=== PATIENT | female | born 2000 | race Caucasian/White ===

== ENCOUNTER 2023-02-14 11:38 | Inpatient (IN) ==
--- NOTE | 2023-02-14 12:51 | History & Physical Report ---
Date of Service February 14, 2023 Assessment & Plan (1) : Plan: Admit to L&D for further monitoring and management VSS FHT category 1 Epidural prn History of Present Illness Chief Complaint: Labor check Primary Care Provider: Nedra Worthington PA-C Lorin is a 22y/o female currently at IUP 40 3/7 WGA with an MEGHAN 02/11/2023 as determined by certain LMP and US who is here due to contractions that began yesterday night, which have become stronger and more regular since their onset. Arrived initially with 3 cm cervical dilation, and after a while progressed to 4 cm with increased effacement. There are no complications associated to her current . (+) contractions (+) movement (-) fluid loss (-) vaginal bleeding External FHT and external uterine monitors used * Category 1 tracing * Contractions q5min Had regular appointments since first trimester. Labs: (07/07/2022) * Blood type: AB positive * Antibody screen: negative * Rubella: immune * VDRL/RPR: non-reactive * Gonorrhea: not detected * Chlamydia: not detected * HIV: non-reactive x2 * HbSAg: non-reactive * GBS: negative * Failed 1-hour GTT but passed the 2-hour GTT * Other screens: * cff-DNA: low risk * CF: negative * SMA: negative Allergies Allergy/AdvReac Type Severity Reaction Status Date / Time No Known Allergies Allergy Verified 02/14/23 10:38 Home Medications Medication Instructions Recorded Confirmed Type prenat.vits,andres,ywb-bykp-egbld 1 tab PO DAILY 06/29/22 02/14/23 History Patient History Medical History Anxiety Depression Surgical History No history of previous surgery Social History (Updated 06/29/22 @ 09:13 by aMssiel Walls) Smoking Status: Never smoker Do You Dip or Chew Tobacco: No; Hx Alcohol Use: No Hx Substance Use: No Preferred Language: Hebrew Communication Ability: Effective 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 current occupational status: employed current occupation: Cosmotologist Other Information That Helps Us Care for You: No Feels Safe at Home: Yes Safety Concerns: Feels Safe At This Time Assistive Devices: None OB History 1 prior Spontaneous at 5 weeks gestation (04/11/2022) SENIOR QUALITY ANALYST History Menarche was at 14 y/o LMP: 05/07/2022 * Regular: Every 27-28 days * Duration: 5 days * Flow: normal * Dysmenorrhea: yes * IMB: no Contraception use: No History of STDs: Yes * Chlamydia (treated on 2021) No history of pap smear Review of Systems no fever, no chills and no sweats Denies changes in vision. Denies shortness of breath or respiratory difficulty. no chest pain and no palpitations no dysuria no headache(s) Physical Exam Physical Exam: General: Alert, oriented x3. Afebrile. No acute distress. Eyes: Pupils equal and reactive to light bilaterally. Extraocular movement intact bilaterally. Cardiac: Regular rate and rhythm, no murmurs/rubs/gallops. Respiratory: Clear to auscultation bilaterally a/p, no wheezes/rales/rhonchi. No increased work of breathing. Symmetrical chest rise. No respiratory distress. Abdomen: Gravid; FHR at 130-135; Position: Cephalic Pelvic: Dilation 3cm; Effacement 80; Station -[address] Stern Lower Extremities: No lower extremity edema or swelling. No deep calf pain. Karen's negative bilaterally Results & Data Vital Signs (Past 12 Hours) Vital Signs Temp Pulse Resp BP Pulse Ox 02/14/23 12:29 94 02/14/23 12:29 109 H 02/14/23 12:24 96 02/14/23 12:24 122 H 02/14/23 12:19 96 02/14/23 12:19 118 H 02/14/23 12:15 94 02/14/23 12:15 122 H 02/14/23 12:14 95 02/14/23 12:14 113 H 02/14/23 12:09 94 02/14/23 12:09 132 H 02/14/23 12:08 137 H 02/14/23 12:08 116/70 08/01/23 11:49 37.0 C 131 H 20 119/74 Diagnostic Findings Anterior placenta EFW 39% Supervising Physician Co-Signing Physician Notes Resident Physician Supervision Note: I interviewed and examined the patient. Discussed with Dr. Delgado and agree with findings and plan as documented in the note. Any exceptions or clarifications ar e listed here: 22 yo at 40 3/7 wga presents w/ ctx increasing in frequency and intensity. Was 3cm in office, progressed to 3-4 and progression in effacement. PNI: None. VSS, Fetus cat 1. GBS neg, desires epidural Documented By: Gemma Stern MD Resident Activity Tracking Resident Involvement: Resident Care Provided Care Provided: OB Delivery
[2023-02-14] MEDS ORDERED: LIDOCAINE 1% LOCAL 20 ML VIAL INFIL PRN (14:23)
[2023-02-14] MEDS ORDERED: OXYTOCIN 30 UNITS/500 ML BAG IV PRN (14:23)
[2023-02-14] MEDS: LACTATED RINGER'S 1,000 ML IV PRN ×3 (14:32→20:12)
[2023-02-14] MEDS ORDERED: fentaNYL citrate PF 100 MCG/2 ML VIAL ONE (14:39)
[2023-02-14] MEDS ORDERED: LIDOCAINE 2%/EPINEPHRINE 1:200,000 20 ML PF ONE (14:40)
[2023-02-14] MEDS ORDERED: fentaNYL 2MCG/ML ROPIVACAINE 1.25MG/ML 100 ML BAG EPI ONE (14:40)
[2023-02-14] MEDS ORDERED: BUPIVACAINE 0.25% PF 30 ML VIAL ONE (14:40)
[2023-02-14] MEDS ORDERED: ePHEDrine sulfate 50 MG/ML AMP ONE (14:40)
[2023-02-14] MEDS ORDERED: SODIUM CHLORIDE 0.9% PF INJ 10 ML VIAL ONE (14:40)
[2023-02-14 15:18] LABS: Hematocrit (blood only) 31.5 % (37.0-47.0); Hemoglobin 10.6 g/dl (12.0-16.0); Mean Corpuscular Hemoglobin 28.9 pg (25.0-34.0); Mean Corpuscular Hgb Conc 33.7 g/dL (32.0-36.0); Mean Corpuscular Volume 85.8 fL (80.0-100.0); Mean Platelet Volume 10.4 fL (9.4-12.4); Platelet Count 233 K/uL (130-400); RDW Coefficient of Variation 13.4 % (11.5-14.5); Red Blood Count 3.67 M/uL (4.20-5.40); White Blood Count 13.88 K/ul (4.8-10.8)
[2023-02-14] MEDS ORDERED: fentaNYL 2MCG/ML ROPIVACAINE 1.25MG/ML 100 ML BAG EPI PRN (15:51)
[2023-02-14] MEDS ORDERED: diphenhydrAMINE 50 MG/ML VIAL IV PRN (15:51)
[2023-02-14] MEDS ORDERED: SODIUM CHLORIDE 0.9% PF INJ 10 ML VIAL EPI PRN (15:51)
[2023-02-14] MEDS ORDERED: NALOXONE HCL 0.4 MG/1 ML VIAL/CARP IV PRN (15:51)
[2023-02-14] MEDS ORDERED: SODIUM CHLORIDE 0.9% PF INJ 10 ML VIAL EPI STA (15:51)
[2023-02-14] MEDS ORDERED: NALBUPHINE HCL INJ 10 MG/ML AMP IV PRN (15:51)
[2023-02-14] MEDS ORDERED: BUPIVACAINE 0.25% PF 30 ML VIAL EPI PRN (15:51)
[2023-02-14] MEDS ORDERED: LIDOCAINE 2%/EPINEPHRINE 1:200,000 20 ML PF EPI STA (15:51)
[2023-02-14] MEDS ORDERED: ROPIVACAINE 0.5% PF 5 MG/ML 20 ML VIAL EPI PRN (15:51)
[2023-02-14] MEDS ORDERED: fentaNYL citrate PF 100 MCG/2 ML VIAL EPI STA (15:51)
[2023-02-14] MEDS ORDERED: ePHEDrine sulfate 50 MG/ML AMP IV PRN (15:51)
[2023-02-14] MEDS ORDERED: NALOXONE HCL 1 MG in SODIUM CHLORIDE 0.9% 1000ML 1,000 ML IV PRN (15:51)
[2023-02-14] MEDS ORDERED: BUPIVACAINE 0.25% PF 30 ML VIAL EPI STA (15:51)
[2023-02-14] MEDS ORDERED: fentaNYL citrate PF 100 MCG/2 ML VIAL EPI PRN (15:51)
[2023-02-14] MEDS ORDERED: LIDOCAINE 2% MPF LOCAL 5 ML VIAL EPI PRN (15:51)
--- NOTE | 2023-02-14 15:52 | Anesthesiology Consultation ---
Date of Service February 14, 2023 Assessment & Plan (1) Encounter for pre-operative examination: Chart Review Chart Review: Patient NOT seen in Pre Admission Testing and Acceptable Risk for Labor Epidural Consults Requested none History Height/Weight Height: 5 ft 3 in Weight: 76.204 kg Allergies Allergy/AdvReac Type Severity Reaction Status Date / Time No Known Allergies Allergy Verified 02/14/23 10:38 Medications Home Medications Medication Instructions Recorded Confirmed Last Taken prenat.vits,andres,gsy-flnt-igarj 1 tab PO DAILY 06/29/22 02/14/23 02/13/23 09:00 Active Medications Generic Name Dose Route Start Last Admin Trade Name Freq PRN Reason Stop Dose Admin Lactated Ringer's 1,000 mls @ 125 mls/hr 02/14/23 14:23 02/14/23 15:59 Lr IV 02/16/23 14: 125 mls/hr .Q8H PRN Infusion L&D Protocol Protocol Past Medical History Medical History (Updated 02/14/23 @ 15:52 by Martin Taveras MD) Anxiety Depression Encounter for pre-operative examination Past Surgical History Surgical History No history of previous surgery Social History Smoking Status: Never smoker Do You Dip or Chew Tobacco: No Hx Alcohol Use: No Hx Substance Use: No Physical Exam Vital Signs Last Vital Signs Temp 36.6 C 02/14/23 14:35 Pulse 105 H 02/14/23 16:12 Resp 20 02/14/23 14:35 BP 119/72 02/14/23 16:12 Pulse Ox 95 02/14/23 16:11 Testing Laboratory Results 02/14/23 14:48
--- NOTE | 2023-02-14 19:24 | Labor Progress Brief Note ---
Date of Service February 14, 2023 Subjective comfortable w/ epidural Assessment & Plan (1) : Plan: 22 yo at 40 3/7 wga presents in labor VSS Fetus cat 1 Labor - good progress from prior, now s/p arom. Pit prn GBS neg epidural prn Admission and Anticipated Discharge Date Admission Date: February 14, 2023 Physical Exam Genitourinary: Manual OB Exam: + cervical dilation (4-5), + cervical effacement 80%, + station -2 and + amniotic fluid (arom clear) OB Exam Monitor Tracing: + external FHT monitor used, + external uterine monitor used (q3-4) and + category I (130/mod/+accel/-decel) Results & Data Vital Signs (Past 12 Hours) Vital Signs Temp Pulse Resp BP Pulse Ox 02/14/23 19:16 93 02/14/23 19:16 85 02/14/23 19:14 89 02/14/23 19:14 106/57 L 02/14/23 19:11 95 02/14/23 19:11 90 02/14/23 19:06 94 02/14/23 19:06 93 H 02/14/23 19:00 18 02/14/23 19:00 98.6 F 18 02/14/23 19:01 94 02/14/23 19:01 94 H 02/14/23 19:00 20 02/14/23 19:00 20 02/14/23 18:59 92 H 02/14/23 18:59 107/62 02/14/23 18:56 95 02/14/23 18:56 95 H 02/14/23 18:51 94 02/14/23 18:51 95 H 02/14/23 18:46 95 02/14/23 18:46 95 H 02/14/23 18:44 98 H 02/14/23 18:44 105/62 02/14/23 18:41 96 02/14/23 18:41 95 H 02/14/23 18:36 95 02/14/23 18:36 90 02/14/23 18:37 88 02/14/23 18:37 105/58 L 02/14/23 18:31 92 02/14/23 18:31 88 02/14/23 18:30 18 02/14/23 18:30 18 02/14/23 18:26 94 02/14/23 18:26 88 02/14/23 18:21 93 02/14/23 18:21 90 02/14/23 18:16 95 02/14/23 18:16 85 02/14/23 18:11 93 02/14/23 18:11 90 02/14/23 18:06 92 02/14/23 18:06 96 H 02/14/23 18:00 18 02/14/23 18:00 18 02/14/23 18:01 96 02/14/23 18:01 97 H 02/14/23 18:01 87 02/14/23 18:01 116/68 02/14/23 17:56 93 02/14/23 17:56 102 H 02/14/23 17:51 93 02/14/23 17:51 99 H 02/14/23 17:46 91 02/14/23 17:46 106 H 02/14/23 17:44 92 H 02/14/23 17:44 106/55 L 02/14/23 17:41 91 02/14/23 17:41 93 H 02/14/23 17:36 91 02/14/23 17:36 94 H 02/14/23 17:31 91 02/14/23 17:31 97 H 02/14/23 17:31 101 H 02/14/23 17:31 111/61 02/14/23 17:30 20 02/14/23 17:30 20 02/14/23 17:26 94 02/14/23 17:26 97 H 02/14/23 17:21 93 02/14/23 17:21 107 H 02/14/23 17:16 93 02/14/23 17:16 96 H 02/14/23 17:15 94 H 02/14/23 17:15 116/58 L 02/14/23 17:11 94 02/14/23 17:11 98 H 02/14/23 17:06 94 02/14/23 17:06 95 H 02/14/23 17:01 94 02/14/23 17:01 92 H 02/14/23 17:00 20 02/14/23 17:00 20 02/14/23 17:00 90 02/14/23 17:00 107/58 L 02/14/23 16:56 93 02/14/23 16:56 92 H 02/14/23 16:51 94 02/14/23 16:51 90 02/14/23 16:46 95 02/14/23 16:46 102 H 02/14/23 16:46 102 H 02/14/23 16:46 112/68 02/14/23 16:41 95 02/14/23 16:41 94 H 02/14/23 16:36 93 02/14/23 16:36 100 H 02/14/23 16:31 94 02/14/23 16:31 102 H 02/14/23 16:30 18 02/14/23 16:30 18 02/14/23 16:28 107 H 02/14/23 16:28 114/75 02/14/23 16:26 92 02/14/23 16:26 106 H 02/14/23 16:27 109 H 02/14/23 16:27 116/76 02/14/23 16:24 100 H 02/14/23 16:24 116/76 02/14/23 16:23 108 H 02/14/23 16:23 116/76 02/14/23 16:21 94 02/14/23 16:21 111 H 02/14/23 16:20 90 02/14/23 16:20 111/63 02/14/23 16:18 108 H 02/14/23 16:18 117/72 02/14/23 16:16 20 02/14/23 16:16 98.6 F 20 02/14/23 16:16 94 02/14/23 16:16 119 H 02/14/23 16:17 118 H 02/14/23 16:17 115/71 02/14/23 16:11 20 02/14/23 16:11 20 02/14/23 16:14 114 H 02/14/23 16:14 119/73 02/14/23 16:12 105 H 02/14/23 16:12 119/72 02/14/23 16:11 95 02/14/23 16:11 104 H 02/14/23 16:11 106 H 02/14/23 16:11 113/70 02/14/23 16:08 100 H 02/14/23 16:08 131/72 02/14/23 16:06 96 02/14/23 16:06 92 H 02/14/23 16:07 95 H 02/14/23 16:07 125/74 02/14/23 16:05 94 02/14/23 16:05 102 H 02/14/23 16:01 96 02/14/23 16:01 108 H 02/14/23 15:56 97 02/14/23 15:56 108 H 02/14/23 15:51 91 02/14/23 15:51 103 H 02/14/23 15:46 97 02/14/23 15:46 101 H 02/14/23 15:41 96 02/14/23 15:41 103 H 02/14/23 15:36 98 02/14/23 15:36 102 H 02/14/23 15:36 114/74 02/14/23 15:34 87 L 02/14/23 15:34 101 H 02/14/23 15:31 97 02/14/23 15:31 97 H 02/14/23 15:26 95 02/14/23 15:26 106 H 02/14/23 15:24 92 02/14/23 15:24 93 H 02/14/23 15:21 97 02/14/23 15:21 86 02/14/23 15:16 97 02/14/23 15:16 114 H 02/14/23 15:11 95 02/14/23 15:11 108 H 02/14/23 15:06 96 02/14/23 15:06 98 H 02/14/23 15:02 94 02/14/23 15:02 100 H 02/14/23 15:01 95 02/14/23 15:01 94 H 02/14/23 14:35 20 02/14/23 14:35 97.9 F 20 02/14/23 14:57 94 02/14/23 14:57 90 02/14/23 14:56 95 02/14/23 14:56 101 H 02/14/23 14:51 95 02/14/23 14:51 116 H 02/14/23 14:51 93 02/14/23 14:51 114 H 02/14/23 14:46 93 02/14/23 14:46 106 H 02/14/23 14:46 92 02/14/23 14:46 108 H 02/14/23 14:41 94 02/14/23 14:41 117 H 02/14/23 14:37 91 02/14/23 14:37 127 H 02/14/23 14:36 96 02/14/23 14:36 105 H 02/14/23 14:35 97 H 02/14/23 14:35 129/72 02/14/23 13:24 95 02/14/23 13:24 100 H 02/14/23 13:19 96 02/14/23 13:19 122 H 02/14/23 13:14 96 02/14/23 13:14 100 H 02/14/23 13:09 94 02/14/23 13:09 125 H 02/14/23 13:04 95 02/14/23 13:04 104 H 02/14/23 12:59 94 02/14/23 12:59 110 H 02/14/23 12:54 94 02/14/23 12:54 114 H 02/14/23 12:49 95 02/14/23 12:49 111 H 02/14/23 12:44 96 02/14/23 12:44 134 H 02/14/23 12:39 95 02/14/23 12:39 124 H 02/14/23 12:34 95 02/14/23 12:34 119 H 02/14/23 12:29 94 02/14/23 12:29 109 H 02/14/23 12:24 96 02/14/23 12:24 122 H 02/14/23 12:19 96 02/14/23 12:19 118 H 02/14/23 12:15 94 02/14/23 12:15 122 H 02/14/23 12:14 95 02/14/23 12:14 113 H 02/14/23 12:09 94 02/14/23 12:09 132 H 02/14/23 12:08 137 H 02/14/23 12:08 116/70 02/14/23 11:49 98.6 F 131 H 20 119/74 Coding Level of Care Code None Diagnoses Z34.90
[2023-02-15] MEDS ORDERED: OXYTOCIN 30 UNITS/500 ML BAG IV PRN ×2 (00:13→05:27)
[2023-02-15] MEDS ORDERED: NURSING L&D Epidural Breakthrough Pain Update ONE (00:21)
[2023-02-15] MEDS: LACTATED RINGER'S 1,000 ML IV PRN (03:05)
--- NOTE | 2023-02-15 05:26 | Delivery Summary ---
Vaginal Delivery Summary Date of Service February 15, 2023 Vaginal Delivery Summary and 2nd Degree LAC PREOPERATIVE DIAGNOSIS: 1. Single intrauterine at 40 4/7 wga 2. Labor POSTOPERATIVE DIAGNOSIS: 1. Single intrauterine at 40 4/7 wga 2. Labor 3. Delivered PROCEDURE: 1. Normal spontaneous vaginal delivery. SURGEON: Gemma Stern MD ANESTHESIA: Epidural. ESTIMATED BLOOD LOSS: 300 mL FLUIDS: Continuous LR. URINE OUTPUT: None. COMPLICATIONS: None. CONDITION: Stable. INDICATIONS: 22 yo at 40 4/7 wga presented one day ago with contractions increasing in frequency and intensity to the office and found to be 3cm and in labor. She continued to progress spontaneously and received an epidural for pain control. She underwent AROM and continued to progress but contractions did slow down around 8cm so pitocin was started. She continued to progress to complete and desired to push. FINDINGS: A viable female infant, weight pending with Apgars of 8 and 9 at 1 and 5 minutes respectively. SPECIMEN: Cord blood OPERATIVE REPORT: The patient progressed to 10 cm, 100% effaced and +2 station, pushed over intact perineum with anesthesia to deliver a viable female , weight and Apgars as above. Head of delivered in TOMASZ position. Loose nuchal cord was present. Body and shoulders were delivered without difficulty. was delivered to maternal abdomen and nursing staff. Delayed cord clamping was performed for 60 seconds. Cord was clamped and cut. Cord blood was obtained. Placenta delivered spontaneously intact with 3-vessel cord. IV oxytocin and fundal massage were given for excellent hemostasis. Vagina, cervix, perineum, and placenta were inspected. A second degree laceration was repaired using 3-0 vicryl in the usual fashion. Sponge and needle counts correct x2. No sponges were left behind. Mother and stable in immediate period. [facility] [place] [facility] [place]aginal Delivery Charge Vaginal Delivery Codes: 69035 global code for the antepartum, delivery, and post- Delivery Type Details: and 2nd Degree LAC
[2023-02-15] MEDS ORDERED: BENZOCAINE 20% SPRY 85 APPLN/85 GM CAN EXT PRN (05:27)
[2023-02-15] MEDS ORDERED: bisacodyL 10 MG SUPP PR PRN (05:27)
[2023-02-15] MEDS ORDERED: ACETAMINOPHEN 325 MG TAB PO PRN (05:27)
[2023-02-15] MEDS ORDERED: DIPHTHERIA/TETANUS/PERTUSSIS Vaccine (Tdap, Age 7+yrs) 0.5mL SYR/VL IM ONE (05:27)
[2023-02-15] MEDS ORDERED: HYDROCORTISONE ACETATE 25 MG SUPP PR PRN (05:27)
[2023-02-15] MEDS: IBUPROFEN 600 MG TAB PO PRN ×3 (06:00→18:47)
--- NOTE | 2023-02-15 07:34 | Anesthesia Procedure Note ---
Date of Service February 15, 2023 Anesthesia Post Epidural Note Vital Signs Vital Signs: Temp Pulse Resp BP Pulse Ox 36.9 C 95 H 18 111/61 92 02/15/23 05:15 02/15/23 07:13 02/15/23 06:45 02/15/23 07:13 02/15/23 05:06 Pain Intensity Bilateral Abdomen: Pain Intensity: 4 Bilateral Episiotomy/Laceration: Pain Intensity: 2 Notes Mental Status: alert / awake / arousable and participated in evaluation Nausea / Vomiting: adequately controlled Pain: adequately controlled Airway Patency, RR, SpO2: stable & adequate BP & HR: stable & adequate Hydration State: stable & adequate Neuraxial Anesthesia: was administered and sensory block is resolving Anesthetic Complications: no major complications apparent and Pt Satisfied with anesthetic care Epidural: Removed without complications and With tip intact
[2023-02-15] MEDS: FERROUS SULFATE 325 MG TAB PO SCH (08:16)
[2023-02-15] MEDS: DOCUSATE SODIUM 100 MG CAP PO SCH ×2 (08:16→20:05)
[2023-02-15] MEDS: PRENATAL VITAMIN 1 TAB PO SCH (08:16)
--- NOTE | 2023-02-16 06:35 | Obstetrical Progress Note ---
Date of Service <Shanta Delgado MD - Last Filed: 02/16/23 07:39> February 16, 2023 Assessment & Plan <Shanta Delgado MD - Last Filed: 02/16/23 07:39> (1) Spontaneous vaginal delivery: Patient with the above mentioned history and findings was evaluated at bedside and found clinically and hemodynamically stable, afebrile, awake, alert, oriented x3, and in no acute distress. Overall she seems stable and is fit to go home today. Discharge instructions were discussed. Her pain will be managed with Tylenol, Advil, Ibuprofen, or Motrin PRN. She is to call to schedule and appointment with her OB for 6 weeks after discharge for her follow up evaluation. All questions were answered. <Keyana Crowe MD, FACOG - Last Filed: 02/16/23 07:41> (1) Spontaneous vaginal delivery: Subjective <Shanta Delgado MD - Last Filed: 02/16/23 07:39> Lorin is a 22 y/o female who is now PPD # 1 following at 40 4/7 weeks. Reports feeling well overall this morning. Refers mild abdominal cramping & 2/10 pain well managed on analgesics. Voiding spontaneously without difficulty. Tolerating meals overnight and able to ambulate some. She is passing gas and has had bowel movements. Some persistent lochia with some improvement this morning. . Her blood type is AB positive with last Hb at 10.6. She is GBS negative and rubella immune. Constitutional: no fever, no chills or no sweats Denies shortness of breath or difficulty breathing Cardiovascular: no chest pain or no palpitations Breast: no breast pain Genitourinary (female): no dysuria Neurologic: no headache(s) Denies changes in vision Physical Exam <Shanta Delgado MD - Last Filed: 02/16/23 07:39> General: Alert. Oriented to person, time, and place. Afebrile. No acute distress. Eyes: pupils equal and reactive to light bilaterally, extraocular movements intact. Cardiac: Regular rate and rhythm, no murmurs/rubs/gallops. Respiratory: Clear to auscultation bilaterally a/p, no wheezes/rales/rhonchi. No increased work of breathing. Symmetrical chest rise. No respiratory distress. Abdomen: Soft, nontender, nondistended. Bowel sounds present. Uterus: Uterine fundus firm, non-tender, and palpable at the umbilicus. Lower Extremities: Mild lower extremity swelling without pitting bilaterally. No deep calf pain. Karen's negative bilaterally. Psych: Euthymic affect. Mood and affect congruence. Regular speech rate and content. Results & Data <Shanta Delgado MD - Last Filed: 02/16/23 07:39> Vital Signs (Past 12 Hours) Vital Signs Temp Pulse Resp BP Pulse Ox O2 Del Method 02/16/23 04:00 36.6 C 84 18 102/67 98 Room Air 02/16/23 00:15 36.6 C 83 18 103/68 99 Room Air 02/15/23 20:10 36.8 C 97 H 18 109/73 98 Room Air <Keyana Crowe MD, FACOG - Last Filed: 02/16/23 07:41> Co-Signing Physician Notes Resident Physician Supervision Note: I interviewed and examined the patient. Discussed with Dr. Delgado and agree with findings and plan as documented in the note. Any exceptions or clarifications are listed here: Doing well. PLan d/c . Instructions given. Documented By: Keyana Crowe MD, FACOG Resident Activity Tracking <Shanta Delgado MD - Last Filed: 02/16/23 07:39> Resident Involvement: Resident Care Provided Care Provided: OB Delivery
[2023-02-16] MEDS: PRENATAL VITAMIN 1 TAB PO SCH (07:27)
[2023-02-16] MEDS: DOCUSATE SODIUM 100 MG CAP PO SCH (07:27)
[2023-02-16] MEDS: FERROUS SULFATE 325 MG TAB PO SCH (07:27)
[2023-02-16] MEDS ORDERED: bisacodyL 5 MG TABEC PO SCH (20:00)
== END 2023-02-16 16:20 | disposition home or self-care (01) | DRG 807 ==
LOC: OPB 11:38 → 4S1 11:39 → 4E2 02-15 07:50
DX: Z37.0 Single live birth; Z3A.40 40 weeks gestation of pregnancy; O70.1 Second degree perineal laceration during delivery

== ENCOUNTER 2024-06-07 07:46 | Inpatient (IN) ==
[2024-06-07] MEDS ORDERED: LIDOCAINE 1% LOCAL 20 ML VIAL INFIL PRN (08:31)
[2024-06-07] MEDS ORDERED: OXYTOCIN 30 UNITS/NSS 30 UNITS/500 ML BAG IV PRN ×2 (08:31→20:23)
[2024-06-07] MEDS: LACTATED RINGER'S 1,000 ML IV SCH (08:45)
--- NOTE | 2024-06-07 08:45 | History & Physical Report ---
Date of Service June 07, 2024 Assessment & Plan (1) Supervision of normal intrauterine in multigravida: (2) Encounter for induction of labor: Plan Admit for IOL Plan for pit, consider AROM Pt desires epidural VSS, Rh+, gbs-, ri, FHT cat 1 Admission and Anticipated Discharge Date Admission Date: June 07, 2024 History of Present Illness Primary Care Provider: Nedra Worthington PA-C Lorin is a 24 y/o female currently at 40 6/7 WGA (w MEGHAN 06/01/24 as determined by LMP) who is here for IOL. Her previous was uncomplicated, and this has been uncomplicated. She has had regular appointments with OB. She denies fevers, fatigue, GALEANA, SOB, chest pain, leg swelling, or n/v exceeding baseline -related symptoms. Mild, irregular contractions, + movement, -LOF External FHT and external uterine monitors used; category 1 tracing, normal variability Blood type: AB+ Antibody screen: Neg GBS: Neg Rubella: Immune VDRL/RPR: Neg Gonorrhea: Not detected Chlamydia: Not detected HIV: Non-reactive HbSAg: Non-reactive Allergies Allergy/AdvReac Type Severity Reaction Status Date / Time No Known Allergies Allergy Verified 06/07/24 08:47 Home Medications Medication Instructions Recorded Confirmed Type vits no.124-ferrous fum 1 tab PO DAILY 06/07/24 06/07/24 History 27 mg iron-folic acid 800 mcg tablet ( Vitamin) Past Med/Surg History Problem List (Updated 06/07/24 @ 08:43 by Ant Hilliard MD) Encounter for induction of labor Supervision of normal intrauterine in multigravida Encounter for anatomic survey Depression Anxiety Medical History (Updated 06/07/24 @ 08:43 by Ant Hilliard MD) Spontaneous vaginal delivery Encounter for pre-operative examination Surgical History No history of previous surgery Social History (Updated 10/17/23 @ 13:42 by Massiel Walls) Smoking Status: Never smoker Do You Dip or Chew Tobacco: No; Hx Alcohol Use: No Hx Substance Use: No Preferred Language: Bangladeshi Communication Ability: Effective 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 current occupational status: unemployed current occupation: Cosmotologist Other Information That Helps Us Care for You: No Feels Safe at Home: Yes Safety Concerns: Feels Safe At This Time Assistive Devices: None Physical Exam Physical Exam: General: Alert and oriented. No acute distress CV: Regular rate and rhythm. No murmurs. Respiratory: CTA bilaterally. No increased work of breathing. Symmetrical chest rise. Abdomen: Gravid: Soft, nontender upon palpation Pelvic: 06/[address] Crowe - 2-3/75%/-[address] Alexander: 3/50%/-2, soft, post Lower extremities: NO LE edema. No deep calf pain. Results & Data Results & Data Vital Signs (Past 12 Hours) Vital Signs Temp Pulse Resp BP 06/07/24 07:59 36.6 C 18 06/07/24 07:56 100 H 135/67 Supervising Physician Co-Signing Physician Notes Resident Physician Supervision Note: I interviewed and examined the patient. Discussed with Dr. Hilliard and agree with findings and plan as documented in the note. Any exceptions or clarifications are listed here: [None] Documented By: Danuta Bright MD, FACOG Resident Activity Tracking Resident Involvement: Resident Care Provided Care Provided: Adult Hospital Medicine and OB Delivery
[2024-06-07] MEDS: OXYTOCIN 30 UNITS/NSS 30 UNITS/500 ML BAG IV PRN (09:10)
[2024-06-07 09:25] LABS: Hematocrit (blood only) 33.8 % (37.0-47.0); Hemoglobin 10.9 g/dl (12.0-16.0); Mean Corpuscular Hemoglobin 27.7 pg (25.0-34.0); Mean Corpuscular Hgb Conc 32.2 g/dL (32.0-36.0); Platelet Count 211 K/uL (130-400); RDW Coefficient of Variation 13.4 % (11.5-14.5); Red Blood Count 3.93 M/uL (4.20-5.40); White Blood Count 10.98 K/ul (4.8-10.8)
[2024-06-07 09:41] LABS: BUN Creatinine Ratio 20.3 (10-20); Calcium 9.1 mg/dl (8.6-10.3); Creatinine Clr Calc Pharmacy 146.4 ml/min
[2024-06-07] MEDS ORDERED: diphenhydrAMINE 50 MG/ML VIAL IV PRN (13:02)
[2024-06-07] MEDS ORDERED: BUPIVACAINE 0.25% PF 30 ML VIAL EPI PRN (13:02)
[2024-06-07] MEDS ORDERED: LIDOCAINE 2% MPF LOCAL 5 ML VIAL EPI PRN (13:02)
[2024-06-07] MEDS ORDERED: ROPIVACAINE 0.5% PF 5 MG/ML 20 ML VIAL EPI PRN (13:02)
[2024-06-07] MEDS ORDERED: fentaNYL citrate PF 100 MCG/2 ML VIAL EPI PRN (13:02)
[2024-06-07] MEDS ORDERED: ePHEDrine sulfate 50 MG/ML AMP IV PRN (13:02)
[2024-06-07] MEDS ORDERED: SODIUM CHLORIDE 0.9% PF INJ 10 ML VIAL EPI PRN (13:02)
[2024-06-07] MEDS ORDERED: ONDANSETRON INJ 2 MG/ML 2 ML VIAL IV PRN (13:02)
[2024-06-07] MEDS ORDERED: NALBUPHINE HCL INJ 10 MG/ML AMP IV PRN (13:02)
[2024-06-07] MEDS ORDERED: NALOXONE HCL 1 MG in SODIUM CHLORIDE 0.9% 1,000 ML IV PRN (13:02)
[2024-06-07] MEDS ORDERED: NALOXONE HCL 0.4 MG/1 ML VIAL/CARP IV PRN (13:02)
--- NOTE | 2024-06-07 13:02 | Anesthesiology Consultation ---
Date of Service June 07, 2024 Assessment & Plan Chart Review Chart Review: Patient NOT seen in Pre Admission Testing and Acceptable Risk for Labor Epidural Consults Requested none ASA ASA2 Proposed Anesthesia Anesthesia Type: Labor Epidural Risk / Benefits Reviewed With: PT / POA / Parent / Guardian, Accepts Plan and Informed Consent Obtained History Height/Weight Height: 5 ft 2 in Weight: 79.832 kg Allergies Allergy/AdvReac Type Severity Reaction Status Date / Time No Known Allergies Allergy Verified 06/07/24 08:47 Medications Home Medications Medication Instructions Recorded Confirmed Last Taken vits no.124-ferrous fum 1 tab PO DAILY 06/07/24 06/07/24 Unknown 27 mg iron-folic acid 800 mcg tablet ( Vitamin) Active Medications Generic Name Dose Route Start Last Admin Trade Name Freq PRN Reason Stop Dose Admin Lactated Ringer's 1,000 mls @ 80 mls/hr 06/07/24 08:45 06/07/24 12:39 Lr IV 06/08/24 08:44 999 mls/hr .[id number] BEVERLY Infusion Oxytocin 30 units in 500 mls @ 6 mls/hr 06/07/24 09:01 06/07/24 10:30 Pitocin 30 Units/Nss IV 06/09/24 09:00 0.36 units/hr .Q24H PRN 6 mls/hr Labor Induction/Augmentation Titration Protocol 0.36 UNITS/HR Past Medical History Medical History (Updated 06/07/24 @ 08:43 by Ant Hilliard MD) Spontaneous vaginal delivery Encounter for pre-operative examination Exercise / Class Metabolic Activity II 4-5 Yardwork/Stairs/Walk up hill Past Surgical History Surgical History No history of previous surgery Past Anesthesia History No Hx of Anesthesia Complications and No Family Hx of Anesthesia Complications History of PONV No Hx of PONV and No Hx of Motion Sickness Social History Smoking Status: Never smoker Do You Dip or Chew Tobacco: No Hx Alcohol Use: No Hx Substance Use: No substance use type: does not use Physical Exam Vital Signs Last Vital Signs Temp 36.9 C 06/07/24 11:01 Pulse 89 06/07/24 12:00 Resp 16 06/07/24 12:00 BP 115/70 06/07/24 12:00 ENMT Mouth: no dentition abnormality Thyromental Distance: > or= 3.5 Finger Breadths Mallampati Class: II Neck normal visual inspection Respiratory normal respiratory effort Auscultation: lungs clear to auscultation bilaterally Cardiovascular Rate/Rhythm: regular rate and regular rhythm Psychiatric Orientation: alert Testing Laboratory Results 06/07/24 09:00 06/07/24 09:00
[2024-06-07] MEDS: fentANYL 2 MCG/ML BUPIVacaine 0.125%-NSS 100ML BAG ONE (13:15)
[2024-06-07] MEDS: BUPIVACAINE 0.25% PF 30 ML VIAL ONE (13:20)
[2024-06-07] MEDS: LIDOCAINE 2%/EPINEPHRINE 1:200,000 20 ML PF ONE (13:20)
[2024-06-07] MEDS: SODIUM CHLORIDE 0.9% PF INJ 10 ML VIAL ONE (13:20)
--- NOTE | 2024-06-07 14:10 | Labor Progress Brief Note ---
Date of Service June 07, 2024 Subjective comfortable after epidural Assessment & Plan (1) Encounter for induction of labor: Plan continue current management. fetus category one. anticipate . Admission and Anticipated Discharge Date Admission Date: June 07, 2024 Physical Exam Physical Exam: cx--4/75/-2 toco--q2-4min, pit at 6 efm--120s with mod variability, accels to 160s, no decels arom--clear Results & Data Vital Signs (Past 12 Hours) Vital Signs Temp Pulse Resp BP Pulse Ox 06/07/24 14:06 99 06/07/24 14:06 104 H 06/07/24 14:01 98 06/07/24 14:01 102 H 06/07/24 13:56 99 06/07/24 13:56 100 H 06/07/24 13:55 92 H 06/07/24 13:55 109/65 06/07/24 13:51 98 06/07/24 13:51 88 06/07/24 13:46 98 06/07/24 13:46 96 H 06/07/24 13:41 100 06/07/24 13:41 93 H 06/07/24 13:40 101 H 06/07/24 13:40 115/66 06/07/24 13:36 99 06/07/24 13:36 98 H 06/07/24 13:31 100 06/07/24 13:31 105 H 06/07/24 13:26 98 06/07/24 13:26 98 H 06/07/24 13:25 97 H 06/07/24 13:25 112/57 L 06/07/24 13:21 98 06/07/24 13:21 94 H 06/07/24 13:18 90 06/07/24 13:18 116/64 06/07/24 13:16 99 06/07/24 13:16 90 06/07/24 13:16 119/68 06/07/24 13:14 89 06/07/24 13:14 120/70 06/07/24 13:11 100 06/07/24 13:11 92 H 06/07/24 13:06 99 06/07/24 13:06 106 H 06/07/24 13:06 104 H 06/07/24 13:06 119/74 06/07/24 12:00 16 06/07/24 12:00 16 06/07/24 12:00 89 06/07/24 12:00 115/70 06/07/24 11:01 18 06/07/24 11:01 36.9 C 18 06/07/24 11:01 98 H 06/07/24 11:01 111/72 06/07/24 09:57 18 06/07/24 09:57 18 06/07/24 09:57 100 H 06/07/24 09:57 114/75 06/07/24 09:42 93 H 06/07/24 09:42 117/75 06/07/24 09:27 100 H 06/07/24 09:27 121/63 06/07/24 09:12 18 06/07/24 09:12 18 06/07/24 09:12 101 H 06/07/24 09:12 132/87 06/07/24 07:59 36.6 C 18 06/07/24 07:56 100 H 135/67 Coding Level of Care Code None Diagnoses Encounter for induction of labor Z34.90
[2024-06-07] MEDS: fentaNYL citrate PF 100 MCG/2 ML VIAL ONE (15:37)
[2024-06-07] MEDS: fentaNYL citrate PF 100 MCG/2 ML VIAL EPI STA (15:37)
[2024-06-07] MEDS: BUPIVACAINE 0.25% PF 30 ML VIAL EPI STA (15:37)
[2024-06-07] MEDS: SODIUM CHLORIDE 0.9% PF INJ 10 ML VIAL EPI STA (15:37)
[2024-06-07] MEDS: LIDOCAINE 2%/EPINEPHRINE 1:200,000 20 ML PF EPI STA (15:37)
[2024-06-07] MEDS: ACETAMINOPHEN 325 MG TAB PO PRN (18:07)
[2024-06-07] MEDS: ePHEDrine sulfate 50 MG/ML AMP ONE (18:12)
[2024-06-07] MEDS: fentANYL 2 MCG/ML BUPIVacaine 0.125%-NSS 100ML BAG EPI PRN (19:39)
--- NOTE | 2024-06-07 20:17 | Delivery Summary ---
Vaginal Delivery Summary Date of Service June 07, 2024 Vaginal Delivery Summary and 2nd Degree LAC Pre-operative Diagnosis: at 40 6/7 Post-operative Diagnosis: same Procedure: pitocin induction epidural arom second degree laceration and repair QBL: 109cc Anesthesia: epidural Procedure: The patient pushed for less than one hour to deliver a viable female infant in marisabel position. The nose and mouth were bulb suctioned on the perineum and the rest of the was then delivered without difficulty. A loose nuchal cord was reduced. The baby was vigorous. The nose and mouth were again bulb suctioned and the infant was placed in the maternal abdomen for drying and attention. Cord was clamped and cut at one minute of life. Cord blood and segment obtained. Placenta delivered spontaneous, intact with a three vessel cord. Cervix/sulci/rectum were intact. A second degree perineal laceration was repaired in the normal standard fashion. Hemostasis obtained with dilute pitocin and fundal massage. Apgars were 8/9. Mother and baby doing well at the end of the delivery. [facility] Vaginal Delivery Charge Delivery Type Details: and 2nd Degree LAC
[2024-06-07] MEDS ORDERED: HYDROCORTISONE ACETATE 25 MG SUPP PR PRN (20:23)
[2024-06-07] MEDS ORDERED: bisacodyL 10 MG SUPP PR PRN (20:23)
[2024-06-07] MEDS ORDERED: oxyCODONE/ACETAMINOPHEN 5mg/325mg TAB PO PRN (20:23)
[2024-06-07] MEDS: ACETAMINOPHEN 325 MG TAB PO ONE (21:07)
[2024-06-07] MEDS: BENZOCAINE 20% SPRY 85 APPLN/85 GM CAN EXT PRN (21:10)
[2024-06-07] MEDS: IBUPROFEN 600 MG TAB PO PRN (21:10)
[2024-06-07] MEDS: DOCUSATE SODIUM 100 MG CAP PO SCH (21:23)
--- NOTE | 2024-06-08 06:22 | Obstetrical Progress Note ---
Date of Service <Ant Hilliard MD - Last Filed: 06/08/24 07:11> June 08, 2024 Assessment & Plan <Ant Hilliard MD - Last Filed: 06/08/24 07:11> (1) care and examination: Plan PPD#1 s/p term : Stable. Rh+, gbs-, ri, vitals & labs wnl Continue routine care, continue OOB and ambulation, diet as tolerated Plan for DC at 24h if cleared by peds <Keyana Crowe MD, FACOG - Last Filed: 06/08/24 07:37> (1) care and examination: Subjective <Ant Hilliard MD - Last Filed: 06/08/24 07:11> Lorin is a 24 y/o who is PPD#1 following at 40+ weeks. Mild abd pain/cramping, well managed on analgesics Is voiding, eating, and ambulating normally Having appropriate lochia Planning for exclusive . Constitutional: no fever, no chills or no sweats Respiratory: no dyspnea Cardiovascular: no chest pain, no palpitations or no calf pain Breast: no breast pain Gastrointestinal: no nausea or no vomiting Genitourinary (female): no dysuria Neurologic: no headache(s) no changes in vision, no headaches Physical Exam <Ant Hilliard MD - Last Filed: 06/08/24 07:11> General: Alert, oriented. No acute distress. Cardiac: Regular rate and rhythm, no murmurs, rubs, or gallops. Respiratory: Clear to auscultation bilaterally. No increased work of breathing. Symmetrical chest rise. No respiratory distress. Abdomen: Soft, nontender, nondistended. Bowel sounds present. Uterus: Uterine fundus firm, nontender, palpable 1 cm below the umbilicus. Lower extremities: No lower extremity edema or swelling. No deep calf pain. Results & Data <Ant Hilliard MD - Last Filed: 06/08/24 07:11> Vital Signs (Past 12 Hours) Vital Signs Temp Pulse Pulse Resp BP BP Pulse Ox 06/08/24 02:10 36.8 C 87 18 110/70 98 06/07/24 22:25 37.0 C 106 H 18 111/59 L 99 06/07/24 22:05 37.0 C 18 06/07/24 22:05 106 H 06/07/24 22:05 111/59 L 06/07/24 21:50 101 H 06/07/24 21:50 117/59 L 06/07/24 21:35 36.8 C 18 06/07/24 21:35 104 H 06/07/24 21:35 113/56 L 06/07/24 21:21 107 H 06/07/24 21:21 112/55 L 06/07/24 21:06 117 H 06/07/24 21:06 107/63 06/07/24 21:05 36.8 C 18 06/07/24 20:50 36.8 C 18 06/07/24 20:50 111 H 06/07/24 20:50 110/65 06/07/24 20:35 36.8 C 18 06/07/24 20:35 112 H 06/07/24 20:35 102/60 06/07/24 20:20 36.8 C 18 06/07/24 20:20 118 H 06/07/24 20:20 104/60 06/07/24 20:06 115 H 06/07/24 20:06 107/55 L 06/07/24 20:05 36.8 C 18 06/07/24 20:03 94 06/07/24 20:03 109 H 06/07/24 20:01 96 06/07/24 20:01 116 H 06/07/24 19:56 97 06/07/24 19:56 130 H 06/07/24 19:56 126/63 06/07/24 19:54 91 06/07/24 19:54 133 H 06/07/24 19:51 95 06/07/24 19:51 151 H 06/07/24 19:49 93 06/07/24 19:49 121 H 06/07/24 19:46 93 06/07/24 19:46 143 H 06/07/24 19:42 92 06/07/24 19:42 119 H 06/07/24 19:42 96/50 L 06/07/24 19:41 95 06/07/24 19:41 119 H 06/07/24 19:36 88 L 06/07/24 19:36 115 H 06/07/24 19:34 87 L 06/07/24 19:34 118 H 06/07/24 19:31 83 L 06/07/24 19:31 109 H 06/07/24 19:29 87 L 06/07/24 19:29 106 H 06/07/24 19:26 99 06/07/24 19:26 108 H 06/07/24 19:26 142/106 H 06/07/24 19:24 90 06/07/24 19:24 123 H 06/07/24 19:22 111 H 06/07/24 19:22 104/55 L 06/07/24 19:21 99 06/07/24 19:21 96 H 06/07/24 19:16 100 06/07/24 19:16 132 H 06/07/24 19:11 98 06/07/24 19:11 111 H 06/07/24 19:10 36.8 C 18 06/07/24 19:10 18 06/07/24 19:10 36.8 C 18 06/07/24 19:10 92 06/07/24 19:10 120 H 06/07/24 19:10 112/57 L 06/07/24 19:06 100 06/07/24 19:06 143 H 06/07/24 19:01 99 06/07/24 19:01 128 H 06/07/24 18:56 99 06/07/24 18:56 125 H 06/07/24 18:56 105/59 L 06/07/24 18:51 100 06/07/24 18:51 127 H 06/07/24 18:46 100 06/07/24 18:46 123 H 06/07/24 18:43 116 H 06/07/24 18:43 99/58 L 06/07/24 18:41 99 06/07/24 18:41 114 H 06/07/24 18:36 100 06/07/24 18:36 115 H 06/07/24 18:31 99 06/07/24 18:31 117 H 06/07/24 18:26 99 06/07/24 18:26 124 H 06/07/24 18:26 99/54 L 06/07/24 18:21 100 06/07/24 18:21 122 H O2 Del Method 06/08/24 02:10 Room Air 06/07/24 22:25 Room Air 06/07/24 22:05 06/07/24 22:05 06/07/24 22:05 06/07/24 21:50 06/07/24 21:50 06/07/24 21:35 06/07/24 21:35 06/07/24 21:35 06/07/24 21:21 06/07/24 21:21 06/07/24 21:06 06/07/24 21:06 06/07/24 21:05 06/07/24 20:50 06/07/24 20:50 06/07/24 20:50 06/07/24 20:35 06/07/24 20:35 06/07/24 20:35 06/07/24 20:20 06/07/24 20:20 06/07/24 20:20 06/07/24 20:06 06/07/24 20:06 06/07/24 20:05 06/07/24 20:03 06/07/24 20:03 06/07/24 20:01 06/07/24 20:01 06/07/24 19:56 06/07/24 19:56 06/07/24 19:56 06/07/24 19:54 06/07/24 19:54 06/07/24 19:51 06/07/24 19:51 06/07/24 19:49 06/07/24 19:49 06/07/24 19:46 06/07/24 19:46 06/07/24 19:42 06/07/24 19:42 06/07/24 19:42 06/07/24 19:41 06/07/24 19:41 06/07/24 19:36 06/07/24 19:36 06/07/24 19:34 06/07/24 19:34 06/07/24 19:31 06/07/24 19:31 06/07/24 19:29 06/07/24 19:29 06/07/24 19:26 06/07/24 19:26 06/07/24 19:26 06/07/24 19:24 06/07/24 19:24 06/07/24 19:22 06/07/24 19:22 06/07/24 19:21 06/07/24 19:21 06/07/24 19:16 06/07/24 19:16 06/07/24 19:11 06/07/24 19:11 06/07/24 19:10 06/07/24 19:10 06/07/24 19:10 06/07/24 19:10 06/07/24 19:10 06/07/24 19:10 06/07/24 19:06 06/07/24 19:06 06/07/24 19:01 06/07/24 19:01 06/07/24 18:56 06/07/24 18:56 06/07/24 18:56 06/07/24 18:51 06/07/24 18:51 06/07/24 18:46 06/07/24 18:46 06/07/24 18:43 06/07/24 18:43 06/07/24 18:41 06/07/24 18:41 06/07/24 18:36 06/07/24 18:36 06/07/24 18:31 06/07/24 18:31 06/07/24 18:26 06/07/24 18:26 06/07/24 18:26 06/07/24 18:21 06/07/24 18:21 Laboratory Results 06/08/24 06:21 06/07/24 09:00 Supervising Physician <Keyana Crowe MD, FACOG - Last Filed: 06/08/24 07:37> Co-Signing Physician Notes Resident Physician Supervision Note: I interviewed and examined the patient. Discussed with Dr. Hilliard and agree with findings and plan as documented in the note. Any exceptions or clarifications are listed here: Patient doing well. PPD 1/2. Patient would like d/c at 24 hours if baby allowed d/c. Instructions given. f/u 6 weeks. Documented By: Keyana Crowe MD, FACOG Resident Activity Tracking <Ant Hilliard MD - Last Filed: 06/08/24 07:11> Resident Involvement: Resident Care Provided Care Provided: [facility] Delivery
[2024-06-08] MEDS: ACETAMINOPHEN 325 MG TAB PO PRN (06:29)
[2024-06-08 06:43] LABS: Hematocrit (blood only) 32.3 % (37.0-47.0); Hemoglobin 10.4 g/dl (12.0-16.0)
--- NOTE | 2024-06-08 08:08 | Anesthesia Procedure Note ---
Date of Service June 08, 2024 Anesthesia Post Epidural Note Vital Signs Vital Signs: Temp Pulse Resp BP Pulse Ox O2 Del Method 36.8 C 86 16 107/68 96 Room Air 06/08/24 07:28 06/08/24 07:28 06/08/24 07:28 06/08/24 07:28 06/08/24 07:28 06/08/24 07:28 Pain Intensity Head: Pain Intensity: 4 Notes Mental Status: alert / awake / arousable Nausea / Vomiting: adequately controlled Pain: adequately controlled Airway Patency, RR, SpO2: stable & adequate BP & HR: stable & adequate Hydration State: stable & adequate Neuraxial Anesthesia: was administered and sensory block is resolving Anesthetic Complications: no major complications apparent Epidural: Removed without complications and With tip intact
[2024-06-08] MEDS: PRENATAL VITAMIN 1 TAB PO SCH (08:41)
[2024-06-08] MEDS: DIPHTHER/TETAN/PERTUS Vaccine (Tdap, Adol/Adult) 0.5mL IM ONE (10:26)
[2024-06-08 11:20] VITALS: O2SAT 97
[2024-06-08 15:23] VITALS: BP 110/71; PULSE 97; RESP 16; TEMP 98.2
[2024-06-08] MEDS: bisacodyL 5 MG TABEC PO SCH (21:18)
== END 2024-06-08 21:25 | disposition home or self-care (01) | DRG 807 ==
LOC: EDSTATUS 07:46 → 4S1 07:47 → 4E2 23:04